=== PATIENT | male | born 1950 | race Caucasian/White ===

== ENCOUNTER 2016-09-06 16:55 | Emergency (ER) | payer MEDICARE, OTHER ==
[~2016-09-06] VITALS: Ht 194.3 cm; Wt 105.1 kg
[~2016-09-06 16:55] MED LIST: AMLO10TA57 PO; ASPI-611 PO; CARV3.1227 PO; MULT1CAP47 PO; SILO4CAP DOB
[2016-09-06 16:59] VITALS: Ht 194.3 cm; Wt 105.1 kg
--- OUTSIDE RECORDS SUMMARY | 2016-09-06 17:00 | XMS REPORT | Referral Summary ---
Author Author [facility] Organization [facility] Address Unknown Phone Unavailable Care Team Providers Care Weed Control Inspector Name Role Phone Nelly Mayfield Primary Care Physician [phone] Encounter Date(s): 02/19/16 - 02/19/16 [facility] [address] [place] [id number]- Discharge Diagnosis: Right-sided nosebleed Discharge Disposition: 01-Home or Self Care Attending Physician: Tr Anderson PA-C Admitting Physician: Tr Anderson PA-C Vital Signs Most recent to 1 oldest [Reference Range]: Temperature Tympanic 36.6 degC [36.6-38.1 degC] (02/19/16 12:58 PM) Peripheral Pulse 67 bpm Rate [60-100 bpm] (02/19/16 12:58 PM) Blood Pressure 140/82 mmHg [90-140/60-90 mmHg] (02/19/16 12:58 PM) SpO2 98 % (02/19/16 12:58 PM) Problem List Condition Effective Dates Status Health Status Informant HTN Active (hypertension)(Confi rmed) Obesity(Confirmed) Active patient Allergies, Adverse Reactions, Alerts No Known Medication Allergies Medications aspirin 81 mg oral tablet 81 mg 1 tabs, Oral, Daily, # 90 tabs, 0 Refill(s) Start Date: 10/16/14 Status: Ordered Coreg 3.125 mg oral tablet 3.125 mg 1 tabs, Oral, BID, # 180 tabs, 0 Refill(s) Start Date: 10/16/14 Status: Ordered lisinopril 20 mg oral tablet 20 mg 1 tabs, Oral, Daily, # 90 tabs, 0 Refill(s), Pharmacy: [facility] Start Date: 01/29/16 Status: Ordered Multiple Vitamins oral tablet 1 tabs, Oral, Daily, # 90 tabs, 0 Refill(s) Start Date: 10/16/14 Status: Ordered Results Hematology Most recent to 1 oldest [Reference Range]: WBC [5.0-10.0 4.8 10*3/uL 10*3/uL] *LOW* (02/19/16 1:53 PM) RBC [3.70-5.20] 4.48 (02/19/16 1:53 PM) Hgb [12.0-16.0 13.1 gm/dL gm/dL] (02/19/16 1:53 PM) Hct [40.0-54.0 %] 39.0 % *LOW* (02/19/16 1:53 PM) MCV [80.0-96.0 fL] 87.1 fL (02/19/16 1:53 PM) MCH [26.0-34.0 pg] 29.2 pg (02/19/16 1:53 PM) MCHC [32.0-36.0 33.6 gm/dL gm/dL] (02/19/16 1:53 PM) RDW [0.0-14.5 %] 13.0 % (02/19/16 1:53 PM) Platelet [150-400 212 10*3/uL 10*3/uL] (02/19/16 1:53 PM) MPV [8.8-14.8 fL] 10.0 fL (02/19/16 1:53 PM) Coagulation Most recent to 1 oldest [Reference Range]: PT Venous (02/19/16 1:53 PM) INR [0.8-1.2] 1.1 1 (02/19/16 1:53 PM) PTT [25.0-35.0 33.0 seconds seconds] (02/19/16 1:53 PM) 1Result Comment: Normal (no anticoagulant): 0.8 - 1.2 Units Routine Therapeutic Range: 2.0 - 3.0 Units High Risk Therapeutic Range: 2.5 - 3.5 Units Immunizations Vaccine Date Refusal Reason tetanus/diphth/pertuss (Tdap) adult/adol 04/29/12 diphtheria-tetanus toxoids 12/05/02 diphtheria-tetanus toxoids 11/08/99 hepatitis B adult vaccine 11/12/06 hepatitis B adult vaccine 06/02/06 hepatitis B adult vaccine 04/14/06 influenza virus vaccine, inactivated 02/01/15 influenza virus vaccine, inactivated 03/17/08 influenza virus vaccine, inactivated 03/04/07 influenza virus vaccine, inactivated 04/03/06 influenza virus vaccine, inactivated 02/09/03 influenza virus vaccine, inactivated 04/04/02 poliovirus vaccine, inactivated 06/14/84 zoster vaccine live 07/02/12 Procedures Procedure Date Related Diagnosis Body Site Collection of venous blood by venipuncture 02/19/16 Colonoscope1 08/13/12 Deviated nasal septum Prostate 1normal colonoscopy repeat in 10 years Social History Social History Type Response Smoking Status Former smoker; Type: Cigarettes Assessment and Plan Extracted from: Title: nose bleed Author: Tr Anderson PA-C Date: 02/19/16 Assessment/Plan Right-sided nosebleed No bleeding was appreciated when examined examination. He did have scant bleeding in the back of his throat however that was after the patient had been laying supine upon sitting up rinsing the mouth and reexamination he had no bleeding in the back of the throat. I obtained lab work recommended follow-up with his primary care next week. If bleeding returns he can follow-up for assessment if conservative measures do not help we did discuss rhinorocket. 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 Ordered: Bleeding Time CBC Hemogram PT/PTT
--- OUTSIDE RECORDS SUMMARY | 2016-09-06 17:00 | XMS REPORT | Continuity of Care Document ---
Author Author [facility] Organization [facility] Address Unknown Phone Unavailable Allergies Active Description Code Type Severity Reaction Onset Reported/Identified Relationship to Patient Clinical Status Yes No Known Drug Intolerances No Known Drug Intolerances Drug Allergy Unknown N/A 02/16/2001 Yes NO KNOW CONTRAST MEDIA ALLERGY NO KNOW CONTRAST MEDIA ALLERGY Drug Allergy Unknown N/A 2004 Yes No Known Drug Allergies No Known Drug Allergies Drug Allergy Unknown N/A 02/26/2005 Yes No Known Food Allergies No Known Food Allergies Drug Allergy Unknown N/A 02/26/2005 Yes NO KNOWN LATEX ALLERGY/SENSITI NO KNOWN LATEX ALLERGY/SENSITI Drug Allergy Unknown N/A 2004 Yes No Known Allergies Drug Allergy 08/12/2012 Yes No Known Drug Allergies Drug Allergy 08/12/2012 Yes No Known Food Allergies Food Allergy 08/12/2012 Yes No Known Drug Allergies No Known Drug Allergies Drug Allergy Unknown . 04/18/2014 Yes No Known Medication Allergies NKMA N/A N/A 10/16/2014 Medications Problems Date Dx Coded Attending Type Code Diagnosis Diagnosed By 08/13/2012 July Thornton MD Final 244.9 HYPOTHYROIDISM NOS 08/13/2012 July Thornton MD Final 401.9 HYPERTENSION NOS 08/13/2012 July Thornton MD Final 427.9 CARDIAC DYSRHYTHMIA NOS 08/13/2012 July Thornton MD Final 564.00 CONSTIPATION NOS Procedures Code Description [place] [id number] DIAGNOSTIC COLONOSCOPY July Thornton MD 08/13/2012 60.21 TRANSURETHRAL PROSTATECTOMY ([place]) Mario Montes MD 04/24/2014 Results Test Result Range CBC - 04/18/14 10:50 MEAN CELL HGB 28.8 pg 27.0-33.0 MEAN CELL HGB CONCENTRATION 34.3 g/dL 32.0-37.0 MEAN CELL VOLUME 84.0 fl 80.0-100.0 RED BLOOD CELL 5.14 m/cumm 4.00-6.00 RED CELL DISTRIBUTION WIDTH 12.8 % 11.0- 15.6 WHITE BLOOD CELL 7.8 k/cumm 5.0-10.0 HEMOGLOBIN 14.8 gm/dL 14.0-18.0 HEMATOCRIT 43.2 % 40.0-54.0 PLATELET COUNT 238 k/cumm 150-400 METABOLIC PANEL, BASIC - 04/18/14 10:50 POTASSIUM 3.7 mmol/L 3.5-5.3 EST GFR (MDRD) > 60 mL/min > 59 ANION GAP 5 mmol/L 5-15 GLUCOSE 81 mg/dL 70-99 CALCIUM 8.7 mg/dL 8.5-10.1 BLOOD UREA NITROGEN 9 mg/dL 7-20 CREATININE 0.8 mg/dL 0.8-1.3 SODIUM 141 mmol/L 135-148 CHLORIDE 105 mmol/L 98-110 CARBON DIOXIDE 31 mmol/L 21-32 MRSA SURVEILLANCE SCREEN - 04/18/14 11:00 Microbiology CBC With Platelet No Differential - 02/19/16 13:53 HCT 39.0 % 40.0-54.0 HGB 13.1 g/dL 12.0-16.0 MCH 29.2 pg 26.0-34.0 MCHC 33.6 g/dL 32.0-36.0 MCV 87.1 fL 80.0-96.0 MPV 10.0 fL 8.8-14.8 Platelet Count 212 K/uL 150-400 RBC 4.48 10*6/uL 3.70-5.20 RDW 13.0 % 0.0-14.5 WBC 4.8 K/uL 5.0-10.0 PTT/PT (INR) - 02/19/16 13:53 INR 1.1 NA 0.8-1.2 Prothrombin Time Venous seconds Encounters ACCT No. Visit Date/Time Discharge Status Pt. Type Provider Facility Loc./Unit Complaint [id number] 08/13/2012 08:05:00 2012 13:05:00 DIS Outpatient Norberto LENNON, July Mayers [facility] on [address]
--- OUTSIDE RECORDS SUMMARY | 2016-09-06 17:00 | XMS REPORT ---
Author Author [facility], [facility] - Organization Unknown Address Unknown Phone Unavailable Allergies, Adverse Reactions, Alerts * No Latex Allergy. * No IV Contrast Allergy. * No Known Drug Allergies. * No Known Food Allergies. * No Known Allergies. Problems * Colonoscopy* Status:Active. Procedures No Procedures Documented. Medication Medication reconciliation has not been performed. Results LAB--BEDSIDE TESTING from 08/13/2012 8:54 AMGlucose NPT 89 mg/dL (70-100 mg/dL) LAB--CHEMISTRY from 08/13/2012 9:02 AMAnion Gap 7 (3-20 ) BUN 10 mg/dL (4-20 mg/dL) Calcium 8.8 mg/dL (8.6-10.0 mg/dL) Chloride 106 mEq/L (99-109 mEq/L) CO2 27 mEq/L (22-32 mEq/L) Creatinine 0.81 mg/dL (0.64-1.27 mg/dL) eGFR >60 (>60- ) Glucose 95 mg/dL (70-100 mg/dL) Potassium 3.6 mEq/L (3.6-5.1 mEq/L) Sodium 140 mEq/L (136-144 mEq/L)
--- OUTSIDE RECORDS SUMMARY | 2016-09-06 17:00 | XMS REPORT | Referral Summary ---
Author Author [facility] Organization [facility] Address Unknown Phone Unavailable Care Team Providers Care Gate Agent Name Role Phone Nelly Mayfield Primary Care Physician [phone] Encounter VC Date(s): 06/18/15 - 06/18/15 [facility] [address] [place] [address]- Discharge Diagnosis: Chronic idiopathic constipation Discharge Diagnosis: Benign hypertension Discharge Diagnosis: PVC (premature ventricular contraction) Discharge Diagnosis: Osteoarthritis of left hand Discharge Disposition: 01-Home or Self Care Attending Physician: Matt Mayfield MD Admitting Physician: Matt Mayfield MD Vital Signs Most recent to 1 oldest [Reference Range]: Temperature Tympanic 35.8 degC [36.6-38.1 degC] *LOW* (06/18/15 2:09 PM) Peripheral Pulse 64 bpm Rate [60-100 bpm] (06/18/15 2:09 PM) Respiratory Rate 16 br/min [14-20 br/min] (06/18/15 2:09 PM) Blood Pressure 148/100 mmHg [90-140/60-90 mmHg] *HI* (06/18/15 2:09 PM) Problem List Condition Effective Dates Status Health Status Informant Obesity(Confirmed) Active patient Allergies, Adverse Reactions, Alerts [...] 20 mg 1 tabs, Oral, Daily, # 30 tabs, 6 Refill(s) Start Date: 06/18/15 Status: Ordered Multiple Vitamins oral tablet 1 tabs, Oral, Daily, # 90 tabs, 0 Refill(s) Start Date: 10/16/14 Status: Ordered Results No data available for this section Immunizations Vaccine Date Refusal Reason tetanus/diphth/pertuss (Tdap) [...] Procedures Procedure Date Related Diagnosis Body Site Colonoscope 05/04/12 Social History Social History Type Response Smoking Status Former smoker; Type: Cigarettes Assessment and Plan Extracted from: Title: Office Visit Note Author: Matt Mayfield MD Date: 06/18/15 Assessment/Plan Benign hypertension, Essential (primary) hypertension Blood pressure is elevated here today. I've recommended adding lisinopril 20 mg daily. Recheck in 1 month with fasting lab including CBC CMP and lipid panel at that time. If he has trouble with the medication prior to that he'll let us know. Ordered: Office Visit Level 4 Est 92598 Chronic idiopathic constipation, Constipation, unspecified I've recommended MiraLAX daily LCL that helps. The goal would be 2-3 stools weeklywithout straining. Ordered: Office Visit Level 4 Est 25240 Osteoarthritis of left hand, Primary osteoarthritis, left hand I think he probably has some arthritis in that left fourth finger. I suggested sometopical capsaicin 4-5 times daily. Ordered: Office Visit Level 4 Est 06787 PVC (premature ventricular contraction), Ventricular premature depolarization Continue Coreg at its current dosage andcontinue follow-up with Dr. Garcia. Ordered: Office Visit Level 4 Est 69184 Orders: lisinopril, 20 mg 1 tabs, Oral, Daily, # 30 tabs, 6 Refill(s)
--- OUTSIDE RECORDS SUMMARY | 2016-09-06 17:00 | XMS REPORT | Referral Summary ---
Author Author [facility] Organization [facility] Address Unknown Phone Unavailable Care Team Providers Care Electric Power Line Examiner Name Role Phone Nelly Mayfield Primary Care Physician [phone] Encounter VC Date(s): 02/28/16 - 02/28/16 [facility] [address] [place] [address] [place] Discharge Diagnosis: Bleeding nose Discharge Disposition: 01-Home or Self Care Attending Physician: Matt Mayfeild MD Admitting Physician: Matt Mayfield MD Vital Signs Most recent to 1 oldest [Reference Range]: Temperature Tympanic 36.3 degC [36.6-38.1 degC] *LOW* (02/28/16 11:03 AM) Peripheral Pulse 72 bpm Rate [60-100 bpm] (02/28/16 11:03 AM) Respiratory Rate 16 br/min [14-20 br/min] (02/28/16 11:03 AM) Blood Pressure 140/82 mmHg [90-140/60-90 mmHg] (02/28/16 11:03 AM) Problem List Condition Effective Dates Status Health [...] Procedures Procedure Date Related Diagnosis Body Site Colonoscope1 08/13/12 Deviated nasal septum Prostate 1normal colonoscopy repeat in 10 years Social History Social History Type Response Smoking Status Former smoker; Type: Cigarettes Assessment and Plan Extracted from: Title: Office Visit Note Author: Matt Mayfield MD Date: 02/28/16 Assessment/Plan 1.Bleeding nose Reassurance at this point I see no obvioussignificant abnormality on my simple examination office today. I told him that if he has recurrence thenwe should have him see one of her nose and throatdoctors for further evaluationand endoscopy. He'll keep me posted on how he's doing.
--- OUTSIDE RECORDS SUMMARY | 2016-09-06 17:00 | XMS REPORT | Referral Summary ---
Author Author [facility] Organization [facility] Address Unknown Phone Unavailable Care Team Providers Care Simulation Educator Name Role Phone Nelly Mayfield Primary Care Physician [phone] Encounter Date(s): 08/03/15 - 08/03/15 [facility] [address] [place] [address]- Discharge Diagnosis: PVC (premature ventricular contraction) Discharge Diagnosis: Encounter for examination required by Department of Transportation (DOT) Discharge Diagnosis: Benign hypertension Discharge Disposition: 01-Home or Self Care Attending Physician: Matt Mayfield MD Admitting Physician: Matt Mayfield MD Vital Signs Most recent to 1 oldest [Reference Range]: Temperature Tympanic 36.1 degC [36.6-38.1 degC] *LOW* (08/03/15 3:18 PM) Peripheral Pulse 68 bpm Rate [60-100 bpm] (08/03/15 3:18 PM) Respiratory Rate 16 br/min [14-20 br/min] (08/03/15 3:18 PM) Blood Pressure 140/82 mmHg [90-140/60-90 mmHg] (08/03/15 3:18 PM) Problem List Condition Effective Dates Status [...] 1 tabs, Oral, Daily, # 90 tabs, 6 Refill(s) Start Date: 06/18/15 Status: [...] Visit Note Author: Matt Mayfield MD Date: 08/03/15 Assessment/Plan Benign hypertension This appears to be adequately controlled no change in current treatment. Encounter for examination required by Department of Transportation (DOT) DOT paperwork is completed today. Zeny receive a 1 year certification secondary to his hypertension. Encouraged him to follow-up for his other chronic regular health problems as previously directed. PVC (premature ventricular contraction) Adequately controlled on Coreg no change in current treatment recommended. Orders: lisinopril, 20 mg 1 tabs, Oral, Daily, # 90 tabs, 6 Refill(s)
[2016-09-06] MEDS ORDERED: NORMAL SALINE 1,000 ML IV ONE (17:25)
--- OUTSIDE RECORDS SUMMARY | 2016-09-06 17:33 | XMS REPORT ---
Author Author [facility], [facility] - Organization Unknown Address Unknown Phone Unavailable [...]
--- OUTSIDE RECORDS SUMMARY | 2016-09-06 17:33 | XMS REPORT | Continuity of Care Document ---
Author Author [facility] Organization [facility] Address Unknown Phone Unavailable Allergies Active Description [...] Procedures Code Description [place] [id number] DIAGNOSTIC COLONOSCOPY July Thornton MD 08/13/2012 60.21 [...] Status Pt. Type Provider Facility Loc./Unit Complaint [id number] 08/13/2012 08:05:00 2012 13:05:00 DIS Outpatient Norberto LENNON, July Mayers [facility] on [address]
--- NOTE | 2016-09-06 17:40 | ERPDOC ---
Departure Disposition Decision Date: September 06, 2016 Disposition Decision Time: 20:00 Disposition: 01 DISCHARGED HOME, SELF-CARE Impression Impression Impression: Primary Impression: Orthostatic hypotension Additional Impressions: Volume depletion Diarrhea Diarrhea type: unspecified type Qualified Codes: R19.7 - Diarrhea, unspecified Severity: Moderate Condition: Improved Seen By: Mid-level only Patient Instructions: Dehydration (ED) Problems/Meds/Labs Reviewed?: Yes Medications reviewed and manag: Yes Additional Instructions: Your labs indicated dehydration which most likely cause your orthostatic hypotension (low blood pressure). Your EKG did not show any indication of acute problem. Stay well hydrated drink 2-3 quarts of water daily. Rest. Follow with your PCP Thursday if symptoms are not improving. Follow up care ordered?: Yes Mental Status: Alert, Oriented HPI - General Medical General Chief Complaint: Dizzy Stated Complaint: LOW BLOOD PRESURE,LIGHTHEADED Time Seen by Provider: 17:40 Source: patient HPI - General Medical Initial Comments 66 YO M presents to ED with report of feeling light headed and low blood pressure. Patient says that he ate breakfast out this morning and when riding home on his bike his bilateral hands began to itch. Says that that resolved and he rode home. [place] tired and generalized malaise on the way home and had to stop several times. Began to have some lower medial abdominal pain after arriving home. Had a large amount of diarrhea. He began to feel lightheaded. Rested and then went to car show outside this afternoon and continued to feel lightheaded. Went to [employer] and took his BP which was low. Associated Symptoms: malaise, DENIES: chest pain, cough, diaphoresis, fever/ chills, headaches, loss of appetite, nausea/vomiting, other (ataxia or pain), rash, seizure, shortness of breath, syncope, weakness Allergies: Coded Allergies: No Known Allergies (Unverified , 08/11/10) Past History Vaccines Hx Influenza Vaccination: Yes (FALL 2010) Hx Pneumococcal Vaccination: No Review of Systems Constitutional Constitutional: DENIES: chills, fever, weakness Eyes General: DENIES: erythema, exudate Lids/Accessories: DENIES: erythema, swelling Vision: DENIES: blurring ENMT Ears: DENIES: pain Sinuses: DENIES: congestion, rhinorrhea Mouth/Throat: DENIES: sore throat Cardiovascular Cardiac: DENIES: chest pain, murmur Rhythm/Rate: DENIES: palpitations Pulmonary Respiratory: DENIES: cough, dyspnea GI Upper Abdomen: DENIES: nausea, pain, vomiting Lower Abdomen: diarrhea, DENIES: blood in stool, pain General: DENIES: dysuria, pain Musculoskeletal General: DENIES: joint pain, pain, tenderness Integumentary Skin: DENIES: color change, itching, rash Neurological General: DENIES: ataxia, change in strength, numbness, paralysis/paresis, weakness Psychiatric Psychiatric: DENIES: anxiety, depression, nervousness Physical Exam General General Nourishment: well nourished, well developed, no acute distress, adult General Body Habitus: well groomed Vitals and Pain First Documented Vital Signs Date Time Temp Pulse Resp B/P Pulse Ox O2 Delivery O2 Flow Rate FiO2 09/06/16 16:59 97.6 96 18 103/60 96 Room Air Weight: Kilograms: Height (feet): Height (inches): Triage Pain Scale: Eyes (brief) Eyes Brief: found: EOMI, PERRL ENMT (brief) ENMT Brief: FOUND: TM clear, TM good light reflex, NOT FOUND: mucosa moist (dry ), nasal exudate, nasal swelling, pharnyx erythema Neck (brief) Neck: FOUND: trachea midline, NOT FOUND: adenopathy, spasm, tenderness, thyromegaly Respiratory (brief) Respiratory: FOUND: clear all ivey, equal bilaterally, symmetrical Cardiovascular Auscultation: FOUND: S1, S2, rate (76), regular Abdomen (brief) Abdominal Brief: FOUND: bowel normo active x4, soft, NOT FOUND: distended, tender Musculoskeletal (brief) Musculoskeletal Brief: NOT FOUND: deformity, tenderness Integumentary (brief) Integumentary Brief: FOUND: dry, pink, warm Neurologic (brief) Neurological Brief: FOUND: CN w/o gross def to obs Neurologic Cranial Nerves: NOT FOUND: facial asymmetry Motor : Motor Side: bilateral Motor Location: pulp house supervisor strength Motor Degree: 5 Sensation: FOUND: soft touch intact x4 ext Psychiatric (brief) Psychiatric Brief: FOUND: alert, normal affect, oriented Differential Diagnoses Considering: Acute ID, Hypo/Hyperglycemia, Hypo/Hyperkalemia, Hypo/ Hypernatremia, Metabolic Considering: Dehydration, Gastroenteritis, Viral Syndrome Considering: Cardiac Dysrhythmia, Long QT Syndrome, Orthostatic Hypotension Progress Results/Orders Orders Procedure Category Date Status Time Cmp - Comprehensive LAB 09/06/16 Complete Metabolic 17:25 Cbc W/Auto LAB 09/06/16 Complete Diff-Reflex Manual 17:25 Troponin I W LAB 09/06/16 Complete Hemolysis Index 17:25 EKG EKG 09/06/16 Taken 17:25 Iv Lock (Ed Only) EDM 09/06/16 Transmitted 17:25 Orthostatic Bp/Pulse EDM 09/06/16 Transmitted 17:25 Normal Saline (Normal PHA 09/06/16 Complete Saline Iv) 17:25 Probnp LAB 09/06/16 Complete Normal Saline (Ns) PHA 09/06/16 Complete 19:15 UA, LAB 09/06/16 Complete Dip&Micro(Complete) & 19:13 Lab Results Laboratory Tests Test 09/06/16 17:52 09/06/16 19:13 White Blood Count 8.6T/MM3 Red Blood Count 5.12M/MM3 Hemoglobin 14.7GM/DL Hematocrit 43.5% Mean Corpuscular Volume 85.0UM3 Mean Corpuscular Hemoglobin 28.7UUG Mean Corpuscular Hemoglobin Concent 33.8GM/DL RDW Standard Deviation 40.5FL Platelet Count 260T/MM3 Mean Platelet Volume 10.7UM3 Immature Granulocyte % (Auto) 0.1% Neutrophils (%) (Auto) 82.5% Lymphocytes (%) (Auto) 12.4% Monocytes (%) (Auto) 4.5% Eosinophils (%) (Auto) 0.3% Basophils (%) (Auto) 0.2% Absolute Immature Granulocyte (auto 0.01T/MM3 Absolute Neutrophils (auto) 7.1T/MM3 Absolute Lymphocytes (auto) 1.1T/MM3 Absolute Monocytes (auto) 0.4T/MM3 Absolute Eosinophils (auto) 0.0T/MM3 Absolute Basophils (auto) 0.0T/MM3 Turbidity < 20 Sodium Level 145MEQ/L Potassium Level 4.9MEQ/L Chloride Level 110MEQ/L Carbon Dioxide Level 22MEQ/L Anion Gap 13MEQ/L Blood Urea Nitrogen 33.0MG/DL Creatinine 1.4MG/DL Glomerular Filtration Rate Calc 51 BUN/Creatinine Ratio 24RATIO Glucose Level 141MG/DL Calculated Osmolality 288MOSM/KG Calcium Level 10.0MG/DL Total Bilirubin 0.70MG/DL Icterus Index < 2 Aspartate Amino Transf (AST/SGOT) 24U/L Alanine Aminotransferase (ALT/SGPT) 44U/L Alkaline Phosphatase 38U/L Troponin I 0.019ng/ml ZA-Zuw-L-Type Natriuretic Peptide 110PG/ML Total Protein 5.7G/DL Albumin 3.8G/DL Globulin 1.9G/DL Albumin/Globulin Ratio 2.0RATIO Chemistry Specimen Hemolysis 27 Urine Collection Type Voided-not cc-midstr Urine Color Yellow Urine Turbidity Sl cloudy Urine pH 5.0 Urine Specific Maxwell >=1.030 Urine Protein 1+ Urine Glucose (UA) Negative Urine Ketones Trace Urine Blood Negative Urine Nitrite Negative Urine Bilirubin Negative Urine Urobilinogen 0.2EU/DL Urine Leukocyte Esterase Negative Urine RBC None seen/HPF Urine WBC None seen/HPF Urine Squamous Epithelial Cells 0-5 Urine Bacteria Trace Urine Hyaline Casts 50-200/LPF Urine Mucus Present Urine Culture Indicated Cult not indicated Medications Current ED Medications Sodium Chloride 1,000 ml @ 0 mls/hr Q0M ONCE IV Last administered on 09/06/16 17:53; Start 09/06/16 at 17:25; Stop 09/06/16 at 17:28; Status DC Sodium Chloride (NS) 500 ml @ 0 mls/hr Q0M ONCE IV Last administered on 19:14; Start 09/06/16 at 19:15; Stop 09/06/16 at 19:16; Status DC Progress Progress Patient was orthostatic on arrival to the ER. CBC unremarkable NA 145 BUN 33 Creatinine 1.4 Troponin 0.019 (most likely from volume depletion) UA SG 1.030 with 50-20 hyaline cysts I discussed labs with patient and answered question. Patient states he feels "100% better" after fluids. Offered admission for additional hydration which patient declined. Patient verbalized understanding of treatment plan, close follow up with PCP and return precautions. Patient is discharged home improved. EKG EKG : Rate: 60-100 Rhythm: sinus [place]: normal QRS: normal Intervals: normal ST/T: non-specific changes Interpreted by: signing physician (Dr. Khanna) AMANDA RHODES APRN September 06, 2016 17:40
--- NOTE | 2016-09-06 17:42 | NUR ---
PROVIDER Oumar RHODES APRN AT BEDSIDE FOR EXAM.
[2016-09-06 17:59] LABS: BASOPHILS % (AUTO) 0.2 % (0-2); EOSINOPHILS % (AUTO) 0.3 % (0-4); HCT - HEMATOCRIT 43.5 % (41-53); HGB - HEMOGLOBIN 14.7 GM/DL (13.5-17.5); IMMATURE GRANULOCYTE # (AUTO) 0.01 T/MM3 (0.00-0.03); IMMATURE GRANULOCYTE % (AUTO) 0.1 % (0.0-0.5); LYMPHOCYTES # (AUTO) 1.1 T/MM3 (1-4.8); LYMPHOCYTES % (AUTO) 12.4 % (23-45); MEAN CORPUSCULAR HGB 28.7 UUG (26-34); MEAN CORPUSCULAR HGB CONC(MCHC 33.8 GM/DL (31-37); MEAN PLATELET VOLUME 10.7 UM3 (9.4-12.4); MONOCYTES # (AUTO) 0.4 T/MM3 (0-0.8); MONOCYTES % (AUTO) 4.5 % (0-9.0); NEUTROPHILS #(AUTO)-ABSOLUTE 7.1 T/MM3 (1.8-7.7); NEUTROPHILS % (AUTO) 82.5 % (33-66); RED BLOOD COUNT 5.12 M/MM3 (4.50-5.90); WBC - WHITE BLOOD COUNT 8.6 T/MM3 (4.5-11.0)
[2016-09-06] MEDS ORDERED: LISI-621 PO (18:00)
--- NOTE | 2016-09-06 18:25 | NUR ---
STATUS APPROX. 500CC INFUSED. PT REPORTS FEELING BETTER AFTER FLUID ADMIN. DENIES FURTHER NEEDS AT THIS TIME. ADVISED STILL NEED URINE AND INSTRUCTED TO CALL IF FEELS THE NEED TO VOID. CALL LIGHT WITHIN REACH, WILL CONTINUE TO MONITOR.
[2016-09-06 18:43] LABS: ALBUMIN 3.8 G/DL (3.5-5.0); ALKALINE PHOSPHATASE 38 U/L (38-126); ALT (SGPT) 44 U/L (21-72); ANION GAP 13 MEQ/L (5-15); AST (SGOT) 24 U/L (17-59); BUN/CREATININE RATIO 24 RATIO (6-26); CHLORIDE 110 MEQ/L (98-107); CO2 - CARBON DIOXIDE 22 MEQ/L (22-30); CREATININE 1.4 MG/DL (0.8-1.5); GLOMERULAR FILTRATION RATE 51; GLUCOSE 141 MG/DL (75-110); POTASSIUM 4.9 MEQ/L (3.6-5); SODIUM 145 MEQ/L (134-144); TOTAL PROTEIN 5.7 G/DL (6.3-8.2)
[2016-09-06] MEDS ORDERED: NORMAL SALINE 500 ML IV ONE (19:15)
[2016-09-06 19:28] LABS: BLOOD, URINE NEGATIVE (NEGATIVE); COLOR,URINE YELLOW (YELLOW); LEUKOCYTE ESTERASE ,URINE NEGATIVE (NEGATIVE); NITRITE,URINE NEGATIVE (NEGATIVE); UROBILINOGEN,URINE 0.2 EU/DL (NORMAL)
[2016-09-06 19:42] LABS: BACTERIA,URINE TRACE (NEGATIVE); RBC,URINE NONE SEEN /HPF (0-3); SQUAMOUS EPITHELIAL CELL,UR 0-5; WBC,URINE NONE SEEN /HPF (0-5)
[2016-09-06 19:43] LABS: HYALINE CASTS, URINE 50-200 /LPF; MUCUS,URINE PRESENT
--- NOTE | 2016-09-06 20:03 | NUR ---
PROVIDER Oumar RHODES APRN AT BEDSIDE TO SPEAK WITH PT.
[2016-09-06 20:36] VITALS: BP 100/61; PULSE 74; RESP 18; TEMP 97.6; O2SAT 94
--- NOTE | 2016-09-06 20:36 | NUR ---
DISCHARGE WRITTEN INSTRUCTIONS REVIEWED AND SENT WITH PT. PT VERBALIZES UNDERSTANDING OF DI, DENIES QUESTIONS. DENIES DIZZINESS AFTER FLUIDS, AND STATES "I FEEL SO MUCH BETTER." PT AMBULATES OUT OF ER WITH STEADY GAIT ACCOMP BY SPOUSE AT THIS TIME.
== END 2016-09-06 20:36 | disposition home or self-care (01) ==
LOC: ED 16:55
DX: I95.1 Orthostatic hypotension (principal); E86.9 Volume depletion, unspecified; R19.7 Diarrhea, unspecified
CPT/HCPCS: 80053; 81001; 83880; 84484; 85025; 93005; 96360; 99284; J7030